=== PATIENT | female | born 1970 | race Caucasian/White ===

== ENCOUNTER 2018-05-15 12:19 | Day surgery (SDC) | payer OTHER ==
[2018-05-15] MEDS ORDERED: LIDOCAINE 2% (SDV) 5 ML INJ (14:19)
[2018-05-15] MEDS ORDERED: PROPOFOL 60 ML (14:19)
== END 2018-05-15 16:05 | disposition home or self-care (01) ==
LOC: GIL 12:19
DX: Z86.010 Personal history of colon polyps (principal); K29.50 Unspecified chronic gastritis without bleeding; E78.5 Hyperlipidemia, unspecified
CPT/HCPCS: 43239; 88305; 88312

== ENCOUNTER 2018-12-27 08:09 | Inpatient (IN) | payer OTHER ==
[2018-12-27] MEDS ORDERED: MIDAZOLAM 1 MG/ML 2 ML INJ (10:22)
[2018-12-27] MEDS ORDERED: PROPOFOL 20 ML (10:22)
[2018-12-27] MEDS ORDERED: ROCURONIUM 50 MG INJ (10:22)
[2018-12-27] MEDS ORDERED: ONDANSETRON 4 MG INJ (10:23)
[2018-12-27] MEDS ORDERED: METOCLOPRAMIDE 10 MG INJ (10:23)
[2018-12-27] MEDS ORDERED: KETOROLAC 30 MG INJ (10:24)
[2018-12-27] MEDS ORDERED: ROPIVACAINE 0.5 % 30 ML VIAL (10:24)
[2018-12-27] MEDS ORDERED: FENTAnyl 50 MCG/ML VIAL IV ×3 (11:00)
[2018-12-27] MEDS ORDERED: OXYCODONE/ACETAMINOPHEN (5/325) TAB PO ×2 (11:00)
[2018-12-27] MEDS ORDERED: LABETALOL HCL 20MG INJ IV (11:00)
[2018-12-27] MEDS ORDERED: HYDROmorphONE 1 MG/5 ML IV SYRINGE IV (11:00)
[2018-12-27] MEDS ORDERED: hydrALAzine 20 MG INJ IV (11:00)
[2018-12-27] MEDS ORDERED: DIPHENHYDRAMINE 50 MG INJ IV (11:00)
[2018-12-27] MEDS ORDERED: CEFAZOLIN 1 GM INJ (11:06)
[2018-12-27] MEDS ORDERED: EPHEDrine 25 MG/5 ML SYG (11:08)
[2018-12-27] MEDS ORDERED: GLYCOPYRROLATE 0.4 MG INJ (11:47)
[2018-12-27] MEDS ORDERED: NEOSTIGMINE 3 MG/3 ML SYRINGE (11:47)
[2018-12-27] MEDS ORDERED: ACETAMINOPHEN 1000MG/100ML IV 100 ML IVPB (12:00)
[2018-12-27] MEDS: ONDANSETRON 4 MG INJ IV (12:10)
[2018-12-27] MEDS: HYDROmorphONE 1 MG/5 ML IV SYRINGE IV ×2 (12:11→12:20)
[2018-12-27] MEDS: MEPERIDINE 25 MG INJ IV (12:11)
[2018-12-27] MEDS: KETOROLAC 30 MG INJ IV (12:12)
[2018-12-27] MEDS ORDERED: GLUCOSE GEL 15 GRAM TUBE PO ×2 (13:00)
[2018-12-27] MEDS ORDERED: GLUCOSE GEL 15 GRAM TUBE BUCCAL (13:00)
[2018-12-27] MEDS ORDERED: GLUCAGON 1 MG INJ IM (13:00)
[2018-12-27] MEDS ORDERED: DEXTROSE 50% 50 ML SYRINGE IV ×2 (13:00)
[2018-12-27] MEDS: D5W-0.45 NACL + KCL 20 MEQ 1,000 ML IV ×2 (14:39→22:41)
[2018-12-27] MEDS: morphine 2 MG INJ IV (17:47)
[2018-12-27] MEDS: INSULIN ASPART [NOVOLOG] 3 ML PEN SC ×2 (17:49→20:57)
[2018-12-28] MEDS: morphine 2 MG INJ IV ×2 (01:48→17:28)
[2018-12-28] MEDS: D5W-0.45 NACL + KCL 20 MEQ 1,000 ML IV ×4 (03:47→15:52)
[2018-12-28 05:35] LABS: ADD MAN DIFF? NO
[2018-12-28 05:38] LABS: WHITE BLOOD COUNT 8.8 10^3/ul (4.8-10.8)
[2018-12-28 05:38] LABS: BASOPHILS % 0.2 % (0.0-2.0); EOSINOPHILS # 0.1 10^3/ul (0.0-0.5); EOSINOPHILS % 0.6 % (0.0-7.0); HEMATOCRIT 32.4 % (37.0-47.0); HEMOGLOBIN 10.9 g/dl (12.0-16.0); LYMPHOCYTES # 1.4 10^3/ul (0.8-2.9); LYMPHOCYTES % 15.9 % (15.0-51.0); MEAN CORPUSCULAR HEMOGLOBIN 31.2 pg (29.0-33.0); MEAN CORPUSCULAR HGB CONC 33.6 g/dl (32.0-37.0); MEAN CORPUSCULAR VOLUME 92.8 fl (82.0-101.0); MEAN PLATELET VOLUME 11.2 fl (7.4-10.4); MONOCYTE # 0.7 10^3/ul (0.3-0.9); MONOCYTES % 7.5 % (0.0-11.0); NEUTROPHIL # 6.6 10^3/ul (1.6-7.5); NEUTROPHILS % 75.3 % (39.0-77.0); PLATELET COUNT 222 10^3/UL (140-415); RED BLOOD COUNT 3.49 10^6/ul (4.20-5.40); RED CELL DISTRIBUTION WIDTH 13.4 % (11.5-14.5)
[2018-12-28 05:55] LABS: HEMOGLOBIN A1C 5.7 % (0-5.9)
[2018-12-28 06:19] LABS: ALANINE AMINOTRANSFERASE 29 IU/L (13-69); ALBUMIN 3.3 g/dl (3.3-4.9); ALBUMIN/GLOBULIN RATIO 1.13; ALKALINE PHOSPHATASE 70 IU/L (42-121); ANION GAP 9 (5-13); ASPARTATE AMINO TRANSFERASE 38 IU/L (15-46); BILIRUBIN,INDIRECT 0.2 mg/dl (0-1.1); BILIRUBIN,TOTAL 0.2 mg/dl (0.2-1.3); BLOOD UREA NITROGEN 6 mg/dl (7-20); CALCIUM 7.9 mg/dl (8.4-10.2); CARBON DIOXIDE 25 mmol/L (21-31); CHLORIDE 105 mmol/L (97-110); CREATININE 0.45 mg/dl (0.44-1.00); Estimated GFR > 60 mL/min (>60); GLUCOSE 135 mg/dl (70-220); POTASSIUM 3.7 mmol/L (3.5-5.1); SODIUM 139 mmol/L (135-144); TOTAL PROTEIN 6.2 g/dl (6.1-8.1)
[2018-12-28] MEDS: INSULIN ASPART [NOVOLOG] 3 ML PEN SC ×4 (08:00→20:26)
[2018-12-28] MEDS: HYDROCODONE/APAP (5/325) TAB PO (08:15)
[2018-12-28] MEDS: ONDANSETRON 4 MG INJ IV (10:24)
[2018-12-29] MEDS: morphine 2 MG INJ IV (01:17)
[2018-12-29] MEDS: D5W-0.45 NACL + KCL 20 MEQ 1,000 ML IV ×3 (01:17→10:36)
[2018-12-29 05:09] LABS: ADD MAN DIFF? NO
[2018-12-29 05:13] LABS: WHITE BLOOD COUNT 7.2 10^3/ul (4.8-10.8)
[2018-12-29 05:13] LABS: BASOPHILS % 0.3 % (0.0-2.0); EOSINOPHILS % 0.6 % (0.0-7.0); HEMATOCRIT 32.4 % (37.0-47.0); HEMOGLOBIN 10.9 g/dl (12.0-16.0); LYMPHOCYTES # 1.4 10^3/ul (0.8-2.9); LYMPHOCYTES % 18.8 % (15.0-51.0); MEAN CORPUSCULAR HEMOGLOBIN 30.9 pg (29.0-33.0); MEAN CORPUSCULAR HGB CONC 33.6 g/dl (32.0-37.0); MEAN CORPUSCULAR VOLUME 91.8 fl (82.0-101.0); MEAN PLATELET VOLUME 11.1 fl (7.4-10.4); MONOCYTE # 0.6 10^3/ul (0.3-0.9); MONOCYTES % 8.9 % (0.0-11.0); NEUTROPHIL # 5.1 10^3/ul (1.6-7.5); NEUTROPHILS % 71.1 % (39.0-77.0); PLATELET COUNT 225 10^3/UL (140-415); RED BLOOD COUNT 3.53 10^6/ul (4.20-5.40); RED CELL DISTRIBUTION WIDTH 13.4 % (11.5-14.5)
[2018-12-29 05:44] LABS: ALANINE AMINOTRANSFERASE 30 IU/L (13-69); ALBUMIN 3.5 g/dl (3.3-4.9); ALBUMIN/GLOBULIN RATIO 1.12; ALKALINE PHOSPHATASE 73 IU/L (42-121); ANION GAP 7 (5-13); ASPARTATE AMINO TRANSFERASE 29 IU/L (15-46); BILIRUBIN,INDIRECT 0.3 mg/dl (0-1.1); BILIRUBIN,TOTAL 0.3 mg/dl (0.2-1.3); BLOOD UREA NITROGEN 5 mg/dl (7-20); CALCIUM 8.2 mg/dl (8.4-10.2); CARBON DIOXIDE 27 mmol/L (21-31); CHLORIDE 104 mmol/L (97-110); CREATININE 0.46 mg/dl (0.44-1.00); Estimated GFR > 60 mL/min (>60); GLUCOSE 115 mg/dl (70-220); POTASSIUM 3.7 mmol/L (3.5-5.1); SODIUM 138 mmol/L (135-144); TOTAL PROTEIN 6.6 g/dl (6.1-8.1)
[2018-12-29] MEDS: ONDANSETRON 4 MG INJ IV (06:52)
[2018-12-29] MEDS: ACETAMINOPHEN 325 MG TAB PO ×2 (06:52→12:56)
[2018-12-29] MEDS: INSULIN ASPART [NOVOLOG] 3 ML PEN SC ×2 (08:00→12:00)
[2018-12-29] MEDS: BISACODYL 10 MG SUPP PR (16:08)
[2018-12-30] MEDS: ACETAMINOPHEN 325 MG TAB PO ×2 (03:59→11:03)
[2018-12-30 06:24] LABS: ADD MAN DIFF? NO
[2018-12-30 06:35] LABS: WHITE BLOOD COUNT 6.8 10^3/ul (4.8-10.8)
[2018-12-30 06:35] LABS: BASOPHILS % 0.6 % (0.0-2.0); EOSINOPHILS # 0.3 10^3/ul (0.0-0.5); HEMATOCRIT 35.2 % (37.0-47.0); LYMPHOCYTES # 1.6 10^3/ul (0.8-2.9); LYMPHOCYTES % 22.9 % (15.0-51.0); MEAN CORPUSCULAR HEMOGLOBIN 31.1 pg (29.0-33.0); MEAN CORPUSCULAR HGB CONC 34.1 g/dl (32.0-37.0); MEAN CORPUSCULAR VOLUME 91.2 fl (82.0-101.0); MONOCYTE # 0.7 10^3/ul (0.3-0.9); MONOCYTES % 10.3 % (0.0-11.0); NEUTROPHIL # 4.2 10^3/ul (1.6-7.5); NEUTROPHILS % 62.1 % (39.0-77.0); PLATELET COUNT 246 10^3/UL (140-415); RED BLOOD COUNT 3.86 10^6/ul (4.20-5.40); RED CELL DISTRIBUTION WIDTH 13.3 % (11.5-14.5)
[2018-12-30 07:26] LABS: ALANINE AMINOTRANSFERASE 41 IU/L (13-69); ALBUMIN 3.8 g/dl (3.3-4.9); ALBUMIN/GLOBULIN RATIO 1.11; ALKALINE PHOSPHATASE 99 IU/L (42-121); ANION GAP 7 (5-13); ASPARTATE AMINO TRANSFERASE 43 IU/L (15-46); BILIRUBIN,INDIRECT 0.3 mg/dl (0-1.1); BILIRUBIN,TOTAL 0.3 mg/dl (0.2-1.3); BLOOD UREA NITROGEN 7 mg/dl (7-20); CARBON DIOXIDE 30 mmol/L (21-31); CHLORIDE 105 mmol/L (97-110); CREATININE 0.57 mg/dl (0.44-1.00); Estimated GFR > 60 mL/min (>60); GLUCOSE 95 mg/dl (70-220); POTASSIUM 3.9 mmol/L (3.5-5.1); SODIUM 142 mmol/L (135-144); TOTAL PROTEIN 7.2 g/dl (6.1-8.1)
[2018-12-30] MEDS: GUAIFENESIN/DM 5ML CUP PO (11:05)
[2018-12-30] MEDS ORDERED: GUAIFENESIN/DM 5ML CUP PO (12:30)
== END 2018-12-30 16:25 | disposition home or self-care (01) | DRG 419 ==
LOC: SDS 08:09 → REC 13:15 → SDS 12-29 14:33 → REC 12-29 14:33 → SDS 11:57 → 2NE 12-29 19:28 → REC 11:48 → 2NE 13:15
PROVIDERS: Surgery Surgical Oncology
PROC: 0FT44ZZ Resection of Gallbladder, Percutaneous Endoscopic Approach (ICD-10-PCS; principal; 2018-12-27 10:30)
DX: K82.4 Cholesterolosis of gallbladder (principal); R73.03 Prediabetes; E78.5 Hyperlipidemia, unspecified; R11.2 Nausea with vomiting, unspecified; R50.9 Fever, unspecified; R14.0 Abdominal distension (gaseous)
CPT/HCPCS: 80053; 82962; 83036; 83735; 84703; 85025; 88304

== ENCOUNTER 2019-02-10 10:09 | Emergency (ER) | payer OTHER ==
[2019-02-10 10:57] LABS: ADD MAN DIFF? NO
[2019-02-10] MEDS: KETOROLAC 15 MG INJ IM (10:57)
[2019-02-10 10:59] LABS: WHITE BLOOD COUNT 14.2 10^3/ul (4.8-10.8)
[2019-02-10 10:59] LABS: ABNORMAL IP MESSAGE 1; BASOPHILS % 0.3 % (0.0-2.0); EOSINOPHILS % 0.1 % (0.0-7.0); HEMATOCRIT 36.6 % (37.0-47.0); HEMOGLOBIN 12.5 g/dl (12.0-16.0); LYMPHOCYTES # 1.2 10^3/ul (0.8-2.9); LYMPHOCYTES % 8.6 % (15.0-51.0); MEAN CORPUSCULAR HEMOGLOBIN 30.8 pg (29.0-33.0); MEAN CORPUSCULAR HGB CONC 34.2 g/dl (32.0-37.0); MEAN CORPUSCULAR VOLUME 90.1 fl (82.0-101.0); MEAN PLATELET VOLUME 10.4 fl (7.4-10.4); MONOCYTE # 1.5 10^3/ul (0.3-0.9); MONOCYTES % 10.8 % (0.0-11.0); NEUTROPHIL # 11.4 10^3/ul (1.6-7.5); NEUTROPHILS % 79.8 % (39.0-77.0); PLATELET COUNT 241 10^3/UL (140-415); RED BLOOD COUNT 4.06 10^6/ul (4.20-5.40)
[2019-02-10 11:02] LABS: POSITIVE DIFF @See below
[2019-02-10 11:07] LABS: ADD UMIC YES; UR ASCORBIC ACID NEGATIVE (NEGATIVE); UR BACTERIA FEW /HPF (NONE SEEN); UR BILIRUBIN (Dip) NEGATIVE (NEGATIVE); UR BLOOD (Dip) 3+ mg/dL (NEGATIVE); UR BUDDING YEAST FEW /HPF (NONE SEEN); UR CLARITY CLOUDY (CLEAR); UR COLOR RED (YELLOW); UR GLUCOSE (Dip) NEGATIVE (NEGATIVE); UR KETONES (Dip) NEGATIVE (NEGATIVE); UR LEUKOCYTE ESTERASE (Dip) 3+ Leu/ul (NEGATIVE); UR NITRITE (Dip) POSITIVE (NEGATIVE); UR NONSQUAMOUS EPITHELIAL CELL 2 /HPF (NONE SEEN); UR RBC 4 /HPF (0-5); UR SPECIFIC GRAVITY (Dip) 1.004 (1.003-1.030); UR SQUAMOUS EPITHELIAL CELL FEW /HPF (FEW); UR TOTAL PROTEIN (Dip) NEGATIVE (NEGATIVE); UR UROBILINOGEN (Dip) NEGATIVE (NEGATIVE); UR WBC > 182 /HPF (0-5)
[2019-02-10 11:20] LABS: ALANINE AMINOTRANSFERASE 36 IU/L (13-69); ALBUMIN 4.2 g/dl (3.3-4.9); ALBUMIN/GLOBULIN RATIO 1.16; ALKALINE PHOSPHATASE 127 IU/L (42-121); ANION GAP 10 (5-13); ASPARTATE AMINO TRANSFERASE 29 IU/L (15-46); BILIRUBIN,INDIRECT 0.7 mg/dl (0-1.1); BILIRUBIN,TOTAL 0.7 mg/dl (0.2-1.3); BLOOD UREA NITROGEN 11 mg/dl (7-20); CARBON DIOXIDE 28 mmol/L (21-31); CHLORIDE 100 mmol/L (97-110); CREATININE 0.65 mg/dl (0.44-1.00); Estimated GFR > 60 mL/min (>60); GLUCOSE 125 mg/dl (70-220); LIPASE 40 U/L (23-300); POTASSIUM 3.9 mmol/L (3.5-5.1); SODIUM 138 mmol/L (135-144); TOTAL PROTEIN 7.8 g/dl (6.1-8.1)
[2019-02-10] MEDS: LIDOCAINE 1% (MPF) 5 ML VIAL INFIL (11:37)
[2019-02-10] MEDS: CEFTRIAXONE 1 GM INJ IM (11:37)
== END 2019-02-10 11:56 | disposition home or self-care (01) ==
LOC: FTE 10:09
DX: N12 Tubulo-interstitial nephritis, not specified as acute or chronic (principal); R10.2 Pelvic and perineal pain
CPT/HCPCS: 36415; 80053; 81001; 81025; 83690; 85025; 87086; 96372; 99284-25